=== PATIENT | male | born 1950 | race Caucasian/White ===

== ENCOUNTER 2017-08-13 06:21 | Observation (INO) ==
[~2017-08-13 06:21] MED LIST: ceFAZolin 1,000 MG in SYRINGE 1 EACH IV ONE
[2017-08-13] MEDS ORDERED: FAMOTIDINE 20 MG TABLET PO ONE (09:49)
[2017-08-13] MEDS ORDERED: DIAZEPAM 5 MG TABLET PO ONE (09:49)
[2017-08-13] MEDS ORDERED: FAMOTIDINE 20 MG TABLET ONE (09:51)
[2017-08-13] MEDS ORDERED: DIAZEPAM 5 MG TABLET ONE (09:51)
[2017-08-13] MEDS ORDERED: LIDOCAINE 1%/EPI INJ 20 ML VIAL ONE (10:23)
[2017-08-13] MEDS ORDERED: BUPIVACAINE MPF 0.25% /EPI 30 ML VIAL ONE (10:23)
[2017-08-13] MEDS ORDERED: ceFAZolin 1,000 MG VIAL ONE (10:45)
[2017-08-13] MEDS ORDERED: TISSUE ADHESIVE 1 EACH APPLICATOR TOP ONE (11:59)
[2017-08-13] MEDS: LACTATED RINGERS 1,000 ML IV SCH ×4 (13:37→20:48)
[2017-08-13] MEDS ORDERED: SEVOFLURANE 1 UNIT/15 MINUTE INH ONE (14:44)
[2017-08-13] MEDS ORDERED: PROPOFOL 200 MG/20 ML VIAL IV ONE (14:44)
[2017-08-13] MEDS ORDERED: fentaNYL 100 MCG/2 ML VIAL ONE (14:44)
[2017-08-13] MEDS ORDERED: GLYCOPYRROLATE 0.4 MG/2 ML VIAL ONE (14:45)
[2017-08-13] MEDS ORDERED: ONDANSETRON 4 MG/2 ML VIAL ONE (14:45)
[2017-08-13] MEDS ORDERED: ROCURONIUM 100 MG/10 ML VIAL IV ONE (14:45)
[2017-08-13] MEDS ORDERED: LACTATED RINGERS 1,000 ML IV ONE (14:46)
[2017-08-13] MEDS ORDERED: NEOSTIGMINE 10 MG/10 ML VIAL ONE (14:46)
[2017-08-13] MEDS ORDERED: PROMETHAZINE 25 MG/1 ML VIAL IM PRN (14:50)
[2017-08-13] MEDS ORDERED: MORPHINE 4 MG/1 ML VIAL IV PRN (14:50)
[2017-08-13] MEDS ORDERED: NITROGLYCERIN SL 0.4 MG TABLET SL PRN (14:50)
[2017-08-13] MEDS ORDERED: POTASSIUM CHLORIDE 20 MEQ TABLET PO PRN (14:50)
[2017-08-13] MEDS ORDERED: FUROSEMIDE 20 MG TABLET PO PRN (14:50)
[2017-08-13] MEDS ORDERED: ONDANSETRON 4 MG/2 ML VIAL IV PRN (14:50)
[2017-08-13] MEDS: ENTACAPONE 200 MG TABLET PO SCH ×3 (15:37→21:01)
[2017-08-13] MEDS: PRAMIPEXOLE 1 MG TABLET PO SCH ×2 (15:37→21:01)
[2017-08-13] MEDS: KETOROLAC 15 MG/1 ML VIAL IV SCH ×2 (15:38→20:50)
[2017-08-13] MEDS: CARBIDOPA/LEVODOPA CR 50-200 MG TABLET PO SCH ×2 (16:59→21:02)
[2017-08-13] MEDS: CHOLECALCIFEROL 1,000 UNIT TABLET PO SCH (21:01)
[2017-08-13] MEDS: METOPROLOL TARTRATE 25 MG TABLET PO SCH (21:01)
[2017-08-14] MEDS: KETOROLAC 15 MG/1 ML VIAL IV SCH ×3 (03:21→15:29)
[2017-08-14] MEDS: LACTATED RINGERS 1,000 ML IV SCH (04:30)
[2017-08-14] MEDS ORDERED: ENOXAPARIN 40 MG/0.4 ML SYRINGE SUBCUT SCH (06:30)
[2017-08-14] MEDS ORDERED: CALCIUM (CARBONATE)/VITAMIN D 600 MG-400 UNIT TABLET PO SCH (09:00)
[2017-08-14] MEDS ORDERED: ATORVASTATIN 40 MG TABLET PO SCH (09:00)
[2017-08-14] MEDS ORDERED: metFORMIN 500 MG TABLET PO SCH (09:00)
[2017-08-14] MEDS ORDERED: ASPIRIN EC 81 MG TABLET PO SCH (09:00)
[2017-08-14] MEDS ORDERED: POLYCARBOPHIL 625 MG TABLET PO SCH (09:00)
[2017-08-14] MEDS ORDERED: sitaGLIPtin 25 MG TABLET PO SCH (09:00)
[2017-08-14] MEDS ORDERED: amLODIPine 10 MG TABLET PO SCH (09:00)
[2017-08-14] MEDS ORDERED: VITAMIN E 400 UNIT CAPSULE PO SCH (09:00)
[2017-08-14] MEDS ORDERED: CLOPIDOGREL 75 MG TABLET PO SCH (09:00)
[2017-08-14] MEDS ORDERED: TAMSULOSIN 0.4 MG CAPSULE PO SCH (10:00)
[2017-08-14] MEDS: PRAMIPEXOLE 1 MG TABLET PO SCH ×2 (10:17→15:25)
[2017-08-14] MEDS: CHOLECALCIFEROL 1,000 UNIT TABLET PO SCH (10:19)
[2017-08-14] MEDS: ENTACAPONE 200 MG TABLET PO SCH ×3 (10:21→17:08)
[2017-08-14] MEDS: METOPROLOL TARTRATE 25 MG TABLET PO SCH (10:21)
[2017-08-14] MEDS: CARBIDOPA/LEVODOPA CR 50-200 MG TABLET PO SCH ×2 (10:45→15:25)
[2017-08-14 16:30] VITALS: BP 139/63
== END 2017-08-14 17:53 | disposition home or self-care (01) ==
LOC: N.2E 06:21 → N.OR 06:21 → N.SDSINP 08:55 → N.2E 14:49
PROVIDERS: ADMIT Surgery; ATTEND Surgery

== ENCOUNTER 2017-09-06 11:51 | Inpatient (IN) ==
[2017-09-06] MEDS ORDERED: MECLIZINE 25 MG TABLET PO STA (12:45)
[2017-09-06] MEDS ORDERED: SODIUM CHLORIDE 0.9% 500 ML IV STA (12:45)
[2017-09-06] MEDS ORDERED: ONDANSETRON 4 MG/2 ML VIAL IV STA (12:45)
[2017-09-06 13:33] LABS: Basophils # 0.1 10*3/uL (0.0-0.2); Basophils % 0.6 % (0.0-0.8); Eosinophils # 0.1 10*3/uL (0.0-0.87); Eosinophils % 1.3 % (0.00-10.9); Hematocrit 38.9 VOL% (42.0-52.0); Hemoglobin 12.6 GM/DL (14.0-18.0); Immature Granulocytes Absolute 0.08 #; Lymphocytes # 1.4 10*3/uL (1.4-4.0); Lymphocytes % 18.2 % (21.2-54.2); Mean Corpuscular HGB Conc 32.4 GM/DL (32-36); Mean Corpuscular Hemoglobin 27 PG (27-34); Mean Corpuscular Volume 82.8 FL (87-102); Mean Platelet Volume 11.6 FL (9.6-12.0); Monocytes # 0.6 10*3/uL (0.11-0.8); Monocytes % 7.9 % (1.7-12.7); Neutrophils # 5.6 10*3/uL (1.4-7.4); Platelet Count 161 T/CUMM (130-400); Red Cell Distribution Width 14.7 % (9.3-17.3); White Blood Count 7.8 T/CUMM (4-12)
[2017-09-06 13:36] LABS: INR 0.9
[2017-09-06 13:49] LABS: Alanine Aminotransferase 11 U/L (16-61); Albumin 4.2 G/DL (3.4-5.0); Alkaline Phosphatase 72 U/L (45-117); Aspartate Amino Transferase 16 U/L (0-37); Blood Urea Nitrogen 41 MG/DL (7-18); Glucose 196 MG/DL (74-106); Potassium 4.5 MMOL/L (3.5-5.1); Sodium 136 MMOL/L (136-145); Total Protein 7.8 G/DL (6.4-8.3); Troponin I Only < 0.015 NG/ML (0.00-0.045)
[2017-09-06 15:19] LABS: Apearance,Urine CLEAR (Clear); Bacteria,Urine Occasional /HPF (Few); Bilirubin,Urine Negative (Negative); Blood, Urine Negative (Negative); Glucose,Urine (UA) 150 mg/dL (Negative); Ketones,Urine 5 mg/dL (Negative); Mucus,Urine Occasional /LPF (Occasional); Nitrite,Urine Negative (Negative); Protein,Urine Negative; RBC,Urine 1 /HPF (0-4); Urine Color Amber (Yellow); Urine Specific Gravity 1.023 (1.001-1.035); Urine Urobilinogen < 2.0 EU/DL (0.2-1.0); WBC,Urine 8 /HPF (0-6)
[2017-09-06] MEDS ORDERED: LEVOFLOXACIN INJ 500 MG in PREMIX 1 EACH IV STA (15:26)
[2017-09-06] MEDS ORDERED: ACETAMINOPHEN 325 MG TABLET PO PRN (16:23)
[2017-09-06] MEDS ORDERED: DEXTROSE 50% 25 GM/50 ML VIAL IV PRN (16:23)
[2017-09-06] MEDS ORDERED: GLUCAGON 1 MG VIAL IM PRN (16:23)
[2017-09-06] MEDS ORDERED: ONDANSETRON 4 MG/2 ML VIAL IV PRN (16:23)
[2017-09-06] MEDS: INSULIN LISPRO 100 UNIT/ML SUBCUT SCH ×2 (18:45→20:09)
[2017-09-06] MEDS: ENTACAPONE 200 MG TABLET PO SCH ×2 (18:47→20:10)
[2017-09-06] MEDS: SODIUM CHLORIDE 0.9% 1,000 ML IV SCH (18:47)
[2017-09-06] MEDS: TAMSULOSIN 0.4 MG CAPSULE PO SCH (20:10)
[2017-09-06] MEDS: CARBIDOPA/LEVODOPA CR 50-200 MG TABLET PO SCH (20:10)
[2017-09-06] MEDS ORDERED: PRAMIPEXOLE DI HCL 1.5 MG PO SCH (21:00)
[2017-09-07 03:42] LABS: Basophils # 0.1 10*3/uL (0.0-0.2); Basophils % 0.9 % (0.0-0.8); Eosinophils # 0.1 10*3/uL (0.0-0.87); Eosinophils % 1.6 % (0.00-10.9); Hematocrit 34.6 VOL% (42.0-52.0); Hemoglobin 11.8 GM/DL (14.0-18.0); Immature Granulocytes % 0.5 %; Immature Granulocytes Absolute 0.04 #; Lymphocytes # 1.6 10*3/uL (1.4-4.0); Mean Corpuscular HGB Conc 34.1 GM/DL (32-36); Mean Corpuscular Hemoglobin 27 PG (27-34); Mean Corpuscular Volume 80.5 FL (87-102); Monocytes # 0.6 10*3/uL (0.11-0.8); Monocytes % 8.4 % (1.7-12.7); Neutrophils # 4.9 10*3/uL (1.4-7.4); Neutrophils % 66.6 % (38.7-73.9); Platelet Count 140 T/CUMM (130-400); Red Cell Distribution Width 14.8 % (9.3-17.3); White Blood Count 7.4 T/CUMM (4-12)
[2017-09-07 04:02] LABS: Calcium 8.2 MG/DL (8.5-10.1); Osmolality,Calculated 281.7 MOS/KG (273-304); Potassium 4.4 MMOL/L (3.5-5.1); Risk Ratio 6.03; Thyroid Stimulating Hormone 1.94 uIU/ml (0.358-3.74); VLDL CHOLESTEROL 77.6 MG/DL
[2017-09-07] MEDS ORDERED: FUROSEMIDE 20 MG TABLET PO PRN (07:59)
[2017-09-07] MEDS ORDERED: NITROGLYCERIN SL 0.4 MG TABLET SL PRN (07:59)
[2017-09-07] MEDS ORDERED: POTASSIUM CHLORIDE 20 MEQ TABLET PO PRN (07:59)
[2017-09-07] MEDS: ENTACAPONE 200 MG TABLET PO SCH ×4 (08:54→20:41)
[2017-09-07] MEDS: PANTOPRAZOLE 40 MG TABLET PO SCH (08:54)
[2017-09-07] MEDS: CLOPIDOGREL 75 MG TABLET PO SCH (08:54)
[2017-09-07] MEDS: POLYCARBOPHIL 625 MG TABLET PO SCH (08:54)
[2017-09-07] MEDS: ATORVASTATIN 40 MG TABLET PO SCH (08:54)
[2017-09-07] MEDS: CARBIDOPA/LEVODOPA CR 50-200 MG TABLET PO SCH ×3 (08:54→20:41)
[2017-09-07] MEDS: TAMSULOSIN 0.4 MG CAPSULE PO SCH ×2 (08:54→20:44)
[2017-09-07] MEDS: ASPIRIN EC 81 MG TABLET PO SCH (08:54)
[2017-09-07] MEDS: INSULIN LISPRO 100 UNIT/ML SUBCUT SCH ×4 (08:58→20:41)
[2017-09-07] MEDS: metFORMIN 500 MG TABLET PO SCH (09:14)
[2017-09-07] MEDS: VITAMIN E 400 UNIT CAPSULE PO SCH (09:14)
[2017-09-07] MEDS: METOPROLOL TARTRATE 25 MG TABLET PO SCH ×2 (09:15→20:41)
[2017-09-07] MEDS: SODIUM CHLORIDE 0.9% 1,000 ML IV SCH ×2 (09:15→21:13)
[2017-09-07] MEDS: CHOLECALCIFEROL 1,000 UNIT TABLET PO SCH ×2 (09:15→20:44)
[2017-09-07] MEDS: amLODIPine 5 MG TABLET PO SCH (09:15)
[2017-09-07] MEDS: LISINOPRIL 20 MG TABLET PO SCH (09:15)
[2017-09-07] MEDS: sitaGLIPtin 25 MG TABLET PO SCH (09:15)
[2017-09-07] MEDS: CALCIUM (CARBONATE) 600 MG TABLET PO SCH ×2 (09:18→20:41)
[2017-09-07] MEDS ORDERED: LEVOFLOXACIN INJ 500 MG in PREMIX 1 EACH IV SCH (16:00)
[2017-09-08 03:43] LABS: Basophils # 0.1 10*3/uL (0.0-0.2); Eosinophils # 0.2 10*3/uL (0.0-0.87); Eosinophils % 2.5 % (0.00-10.9); Hematocrit 35.9 VOL% (42.0-52.0); Hemoglobin 12.5 GM/DL (14.0-18.0); Immature Granulocytes % 0.6 %; Immature Granulocytes Absolute 0.04 #; Lymphocytes # 1.6 10*3/uL (1.4-4.0); Lymphocytes % 21.5 % (21.2-54.2); Mean Corpuscular HGB Conc 34.8 GM/DL (32-36); Mean Corpuscular Hemoglobin 28 PG (27-34); Mean Corpuscular Volume 79.2 FL (87-102); Mean Platelet Volume 11.7 FL (9.6-12.0); Monocytes # 0.6 10*3/uL (0.11-0.8); Monocytes % 8.5 % (1.7-12.7); Neutrophils # 4.8 10*3/uL (1.4-7.4); Neutrophils % 65.9 % (38.7-73.9); Platelet Count 142 T/CUMM (130-400); Red Blood Count 4.53 MC/CUMM (3.8-5.5); Red Cell Distribution Width 14.5 % (9.3-17.3); White Blood Count 7.2 T/CUMM (4-12)
[2017-09-08 04:04] LABS: Calcium 8.8 MG/DL (8.5-10.1); Osmolality,Calculated 284.5 MOS/KG (273-304); Potassium 4.1 MMOL/L (3.5-5.1)
[2017-09-08] MEDS: ENTACAPONE 200 MG TABLET PO SCH (09:25)
[2017-09-08] MEDS: CALCIUM (CARBONATE) 600 MG TABLET PO SCH (09:25)
[2017-09-08] MEDS: LISINOPRIL 20 MG TABLET PO SCH (09:25)
[2017-09-08] MEDS: VITAMIN E 400 UNIT CAPSULE PO SCH (09:25)
[2017-09-08] MEDS: INSULIN LISPRO 100 UNIT/ML SUBCUT SCH (09:25)
[2017-09-08] MEDS: ATORVASTATIN 40 MG TABLET PO SCH (09:25)
[2017-09-08] MEDS: sitaGLIPtin 25 MG TABLET PO SCH (09:26)
[2017-09-08] MEDS: PANTOPRAZOLE 40 MG TABLET PO SCH (09:26)
[2017-09-08] MEDS: POLYCARBOPHIL 625 MG TABLET PO SCH (09:26)
[2017-09-08] MEDS: CHOLECALCIFEROL 1,000 UNIT TABLET PO SCH (09:26)
[2017-09-08] MEDS: CLOPIDOGREL 75 MG TABLET PO SCH (09:26)
[2017-09-08] MEDS: TAMSULOSIN 0.4 MG CAPSULE PO SCH (09:26)
[2017-09-08] MEDS: metFORMIN 500 MG TABLET PO SCH (09:26)
[2017-09-08] MEDS: ASPIRIN EC 81 MG TABLET PO SCH (09:26)
[2017-09-08] MEDS: CARBIDOPA/LEVODOPA CR 50-200 MG TABLET PO SCH (09:26)
[2017-09-08] MEDS: amLODIPine 5 MG TABLET PO SCH (09:26)
[2017-09-08] MEDS: METOPROLOL TARTRATE 25 MG TABLET PO SCH (09:27)
[2017-09-08 09:49] VITALS: BP 150/81
== END 2017-09-08 09:58 | disposition home or self-care (01) | DRG 312 ==
LOC: N.ED 11:51 → N.EDINP 15:43 → N.5E 17:40

== ENCOUNTER 2020-10-10 10:23 | Observation (INO) ==
[2020-10-10] MEDS ORDERED: DEXTROSE 50% 25 GM/50 ML VIAL IV PRN (10:26)
[2020-10-10] MEDS ORDERED: GLUCAGON 1 MG VIAL IM PRN (10:26)
[2020-10-10] MEDS ORDERED: ONDANSETRON 4 MG/2 ML VIAL IV PRN (10:26)
[2020-10-10] MEDS ORDERED: ACETAMINOPHEN 325 MG TABLET PO PRN (10:26)
[2020-10-10] MEDS ORDERED: FUROSEMIDE 40 MG/4 ML VIAL IV ONE (10:43)
[2020-10-10 11:31] LABS: Basophils # 0.1 10*3/uL (0.0-0.2); Basophils % 0.9 % (0.0-0.8); Eosinophils # 0.1 10*3/uL (0.0-0.87); Eosinophils % 1.9 % (0.00-10.9); Hematocrit 36.7 VOL% (42.0-52.0); Immature Granulocytes % 0.5 %; Immature Granulocytes Absolute 0.04 #; Lymphocytes # 1.5 10*3/uL (1.4-4.0); Lymphocytes % 19.7 % (21.2-54.2); Mean Corpuscular HGB Conc 32.7 GM/DL (32-36); Mean Platelet Volume 11.6 FL (9.6-12.0); Monocytes % 6.2 % (1.7-12.7); Neutrophils % 70.8 % (38.7-73.9); Platelet Count 163 T/CUMM (130-400); Red Blood Count 4.32 MC/CUMM (3.8-5.5); Red Cell Distribution Width 13.2 % (9.3-17.3); White Blood Count 7.4 T/CUMM (4-12)
[2020-10-10 12:14] LABS: Bilirubin,Total 0.5 MG/DL (0.20-1.00); Osmolality,Calculated 287.5 MOS/KG (273-304); Potassium 4.1 MMOL/L (3.5-5.1); Thyroid Stimulating Hormone 1.49 uIU/ml (0.358-3.74); Total Protein 7.5 G/DL (6.4-8.2)
[2020-10-10] MEDS: INSULIN LISPRO 100 UNIT/ML SUBCUT SCH ×3 (15:06→20:40)
[2020-10-10] MEDS ORDERED: hydrALAZINE 20 MG/1 ML VIAL IV PRN (15:09)
[2020-10-10] MEDS ORDERED: POTASSIUM CHLORIDE 20 MEQ TABLET PO PRN (15:16)
[2020-10-10] MEDS ORDERED: FUROSEMIDE 20 MG TABLET PO PRN (15:16)
[2020-10-10] MEDS ORDERED: NITROGLYCERIN SL 0.4 MG TABLET SL PRN (15:16)
[2020-10-10] MEDS: METOPROLOL TARTRATE 25 MG TABLET PO SCH ×2 (16:02→20:39)
[2020-10-10] MEDS: ASPIRIN EC 81 MG TABLET PO SCH (16:03)
[2020-10-10] MEDS: CHOLECALCIFEROL 1,000 UNIT TABLET PO SCH (16:03)
[2020-10-10] MEDS: SERTRALINE 50 MG TABLET PO SCH (16:03)
[2020-10-10] MEDS: FENOFIBRATE 145 MG TABLET PO SCH (16:03)
[2020-10-10] MEDS: FINASTERIDE 5 MG TABLET PO SCH (16:03)
[2020-10-10] MEDS: POLYCARBOPHIL 625 MG TABLET PO SCH (16:03)
[2020-10-10] MEDS: lisinopriL 20 MG TABLET PO SCH (16:03)
[2020-10-10] MEDS: CARBIDOPA/LEVODOPA CR 25-100 MG TABLET PO SCH (20:39)
[2020-10-10] MEDS: ATORVASTATIN 40 MG TABLET PO SCH (20:39)
[2020-10-10] MEDS: ENTACAPONE 200 MG TABLET PO SCH (20:39)
[2020-10-10] MEDS: CALCIUM (CARBONATE)/VITAMIN D 600 MG-400 UNIT TABLET PO SCH (20:40)
[2020-10-10] MEDS: PRAMIPEXOLE 1.5 MG PO SCH (20:41)
[2020-10-11 05:02] LABS: Basophils # 0.1 10*3/uL (0.0-0.2); Basophils % 1.2 % (0.0-0.8); Eosinophils # 0.2 10*3/uL (0.0-0.87); Eosinophils % 2.6 % (0.00-10.9); Hematocrit 35.1 VOL% (42.0-52.0); Hemoglobin 11.5 GM/DL (14.0-18.0); Immature Granulocytes % 0.9 %; Immature Granulocytes Absolute 0.06 #; Lymphocytes # 1.8 10*3/uL (1.4-4.0); Lymphocytes % 25.8 % (21.2-54.2); Mean Corpuscular HGB Conc 32.8 GM/DL (32-36); Mean Corpuscular Volume 84.4 FL (87-102); Monocytes % 8.8 % (1.7-12.7); Neutrophils % 60.7 % (38.7-73.9); Platelet Count 158 T/CUMM (130-400); Red Blood Count 4.16 MC/CUMM (3.8-5.5); Red Cell Distribution Width 13.3 % (9.3-17.3); White Blood Count 6.8 T/CUMM (4-12)
[2020-10-11 05:21] LABS: Calcium 9.6 MG/DL (8.5-10.1); Potassium 3.8 MMOL/L (3.5-5.1); Risk Ratio 4.06
[2020-10-11] MEDS ORDERED: diphenhydrAMINE CAP 50 MG CAPSULE PO ONE (07:00)
[2020-10-11] MEDS ORDERED: DIAZEPAM 5 MG TABLET PO ONE (07:00)
[2020-10-11] MEDS: INSULIN LISPRO 100 UNIT/ML SUBCUT SCH ×4 (08:39→21:13)
[2020-10-11] MEDS: lisinopriL 20 MG TABLET PO SCH (08:55)
[2020-10-11] MEDS: PANTOPRAZOLE 40 MG TABLET PO SCH (08:55)
[2020-10-11] MEDS: ASPIRIN EC 81 MG TABLET PO SCH (08:55)
[2020-10-11] MEDS: METOPROLOL TARTRATE 25 MG TABLET PO SCH ×2 (08:55→20:59)
[2020-10-11] MEDS ORDERED: SODIUM CHLORIDE 0.45% 1,000 ML IV SCH (09:00)
[2020-10-11] MEDS ORDERED: HEPARIN/NACL 0.9% 2 UNITS/ML 2,000 UNIT/1,000 ML BAG IV ONE (11:58)
[2020-10-11] MEDS ORDERED: LIDOCAINE 1% 20 ML VIAL ONE (11:58)
[2020-10-11] MEDS ORDERED: MIDAZOLAM 2 MG/2 ML VIAL ONE (13:13)
[2020-10-11] MEDS ORDERED: fentaNYL 100 MCG/2 ML VIAL ONE (13:13)
[2020-10-11] MEDS: CALCIUM (CARBONATE)/VITAMIN D 600 MG-400 UNIT TABLET PO SCH ×2 (14:27→20:59)
[2020-10-11] MEDS: ENTACAPONE 200 MG TABLET PO SCH ×3 (14:27→20:58)
[2020-10-11] MEDS: CARBIDOPA/LEVODOPA CR 25-100 MG TABLET PO SCH ×3 (14:28→21:07)
[2020-10-11] MEDS: PRAMIPEXOLE 1.5 MG PO SCH ×3 (14:28→20:59)
[2020-10-11] MEDS: FENOFIBRATE 145 MG TABLET PO SCH (14:38)
[2020-10-11] MEDS: FINASTERIDE 5 MG TABLET PO SCH (14:39)
[2020-10-11] MEDS: ISOSORBIDE MONONITRATE 30 MG TABLET PO SCH (14:39)
[2020-10-11] MEDS: SERTRALINE 50 MG TABLET PO SCH (14:39)
[2020-10-11] MEDS: CHOLECALCIFEROL 1,000 UNIT TABLET PO SCH (14:39)
[2020-10-11] MEDS: POLYCARBOPHIL 625 MG TABLET PO SCH (14:39)
[2020-10-11] MEDS: CLOPIDOGREL 75 MG TABLET PO SCH (17:32)
[2020-10-11] MEDS: RANOLAZINE 500 MG TABLET PO SCH (20:58)
[2020-10-11] MEDS: amLODIPine 5 MG TABLET PO SCH (20:58)
[2020-10-11] MEDS: ATORVASTATIN 40 MG TABLET PO SCH (20:58)
[2020-10-12 01:49] VITALS: BP 111/57
[2020-10-12 05:45] LABS: Basophils # 0.1 10*3/uL (0.0-0.2); Basophils % 0.8 % (0.0-0.8); Eosinophils # 0.1 10*3/uL (0.0-0.87); Eosinophils % 1.5 % (0.00-10.9); Hematocrit 35.9 VOL% (42.0-52.0); Hemoglobin 11.7 GM/DL (14.0-18.0); Immature Granulocytes % 0.9 %; Immature Granulocytes Absolute 0.07 #; Lymphocytes # 1.6 10*3/uL (1.4-4.0); Lymphocytes % 20.1 % (21.2-54.2); Mean Corpuscular HGB Conc 32.6 GM/DL (32-36); Mean Corpuscular Volume 84.9 FL (87-102); Mean Platelet Volume 11.6 FL (9.6-12.0); Monocytes % 6.5 % (1.7-12.7); Neutrophils % 70.2 % (38.7-73.9); Platelet Count 172 T/CUMM (130-400); Red Blood Count 4.23 MC/CUMM (3.8-5.5); Red Cell Distribution Width 13.6 % (9.3-17.3); White Blood Count 7.8 T/CUMM (4-12)
[2020-10-12 06:03] LABS: Calcium 9.6 MG/DL (8.5-10.1); Osmolality,Calculated 285.2 MOS/KG (273-304); Potassium 3.9 MMOL/L (3.5-5.1)
[2020-10-12] MEDS ORDERED: SODIUM CHLORIDE 0.45% 1,000 ML IV SCH (07:00)
[2020-10-12] MEDS ORDERED: POTASSIUM CHLORIDE 10 MEQ TABLET PO SCH (09:00)
[2020-10-12] MEDS ORDERED: FUROSEMIDE 20 MG TABLET PO SCH (09:00)
[2020-10-12] MEDS: PANTOPRAZOLE 40 MG TABLET PO SCH (09:23)
[2020-10-12] MEDS: FENOFIBRATE 145 MG TABLET PO SCH (09:24)
[2020-10-12] MEDS: METOPROLOL TARTRATE 25 MG TABLET PO SCH (09:24)
[2020-10-12] MEDS: CHOLECALCIFEROL 1,000 UNIT TABLET PO SCH (09:24)
[2020-10-12] MEDS: amLODIPine 5 MG TABLET PO SCH (09:24)
[2020-10-12] MEDS: CARBIDOPA/LEVODOPA CR 25-100 MG TABLET PO SCH ×2 (09:24→15:00)
[2020-10-12] MEDS: ENTACAPONE 200 MG TABLET PO SCH ×2 (09:24→14:59)
[2020-10-12] MEDS: ISOSORBIDE MONONITRATE 30 MG TABLET PO SCH (09:24)
[2020-10-12] MEDS: FINASTERIDE 5 MG TABLET PO SCH (09:25)
[2020-10-12] MEDS: RANOLAZINE 500 MG TABLET PO SCH (09:25)
[2020-10-12] MEDS: lisinopriL 20 MG TABLET PO SCH (09:25)
[2020-10-12] MEDS: SERTRALINE 50 MG TABLET PO SCH (09:25)
[2020-10-12] MEDS: POLYCARBOPHIL 625 MG TABLET PO SCH (09:25)
[2020-10-12] MEDS: CALCIUM (CARBONATE)/VITAMIN D 600 MG-400 UNIT TABLET PO SCH (09:25)
[2020-10-12] MEDS: CLOPIDOGREL 75 MG TABLET PO SCH (09:25)
[2020-10-12] MEDS: ASPIRIN EC 81 MG TABLET PO SCH (09:25)
[2020-10-12] MEDS: PRAMIPEXOLE 1.5 MG PO SCH ×2 (09:26→14:59)
[2020-10-12] MEDS: INSULIN LISPRO 100 UNIT/ML SUBCUT SCH ×2 (09:26→14:59)
== END 2020-10-12 15:01 | disposition home or self-care (01) ==
LOC: N.TELEN 10:43 → INTOOBSV 10:43
PROVIDERS: ADMIT Internal Medicine Cardiovascular Disease; ATTEND Internal Medicine Cardiovascular Disease
PROC: CLCCHCL (ICD-10-PCS; 2020-10-11 13:45)